=== PATIENT | female | born 1955 | race Caucasian/White ===

== ENCOUNTER 2018-08-25 18:22 | Emergency (ER) | payer BC ==
--- OUTSIDE RECORDS SUMMARY | 2018-08-25 18:31 | XMS REPORT | Continuity of Care Document ---
:1955 External Reference #:[id number] Author Name Yoni Dumont M.D. Address [address] [place] [address] Care Team Providers Name Role Phone Irasema Alba MD Care Team Information Design Project Manager Unavailable Irasema Alba MD Primary Care Physician Unavailable Payers Type Date Identification Numbers Payment Provider Subscriber Policy Number: [id number] [employer] Emiliana Benavidez PayID: [id number] [address] [place] [address] Advance Directives Description No Information Available Problems Date Description Provider Status Onset: 03/14/2016 Presence of intraocular lens Lennox Box O.D. Active Onset: 03/01/2016 Convalescence after surgery Yoni Dumont M.D. Active Onset: 02/09/2016 Type 2 diabetes mellitus Yoni Dumont M.D. Active Onset: 02/09/2016 Nuclear senile cataract Yoni Dumont M.D. Active Family History Date Family Member(s) Problem(s) Comments General Cerebrovascular Accident General High BP General Substance Abuse General Thyroid Disease General Grandparent, Son, Aunt Father Cataract Father Cancer Mother Cataract Mother High BP Social History Type Date Description Comments Sex Unknown ETOH Use Denies alcohol use Tobacco Use Start: Unknown Patient has never smoked Smoking Status Reviewed: 07/29/18 Patient has never smoked Allergies, Adverse Reactions, Alerts Date Description Reaction Status Severity Comments 02/09/2016 Penicillin Active 02/09/2016 Keflex Active 02/09/2016 Morphine Active 02/09/2016 Prednisone Active Medications Medication Date Status Form Strength Qnty SIG Indications Ordering Provider Levothyroxine 00/ Active Tablets 88mcg Unknown Sodium 0000 Ramipril 00/ Active Capsules 5mg Unknown 0000 Lipitor / Active Tablets 10mg Unknown 0000 Wellbutrin XL / Active Tablets ER 300mg Unknown 0000 24HR Lexapro / Active Tablets 20mg Unknown 0000 Flonase Allergy / Active Suspension 50mcg/Act 1 Unknown Relief 0000 intranasal every day as needed Aspir-81 / Active Tablets DR 81mg once per Unknown 0000 day by mouth Metformin HCL / Active Tablets ER 500mg Take 4 Unknown ER 0000 24HR Tablets By Mouth Every Day Victoza / Active Solution 18mg/3ML Unknown 0000 Pen-Inject Novolog 00/ Active Solution 100Unit/M Use Via Unknown 0000 L Insulin Pump Maximum Daily Dose Of 100 Units Per Day Ketorolac 02/13/ Hx Solution 0.5% 10ml 1 drops Yoni Tromethamine 2015 - right eye Dumont, 04/04/ twice a day M.D. 2015 Pred Forte 02/13/ Hx Suspension 1% 10ml 1 drops Yoni 2016 - right eye Dumont, 04/04/ four times M.D. 2015 a day Janumet / Hx Tablets 50-1000mg Unknown 0000 - 2017 Toujeo Solostar / Hx Solution 300Unit/M Unknown 0000 - Pen-Inject L 2017 Immunizations Description No Information Available Vital Signs Date Vital Result Comment 04/01/2018 10:38am Intraocular Pressure Right Eye 18 mmHg Intraocular Pressure Left Eye 18 mmHg 10/25/2016 10:18am Intraocular Pressure Right Eye 19 mmHg Intraocular Pressure Left Eye 19 mmHg 03/14/2016 11:53am Intraocular Pressure Right Eye 21 mmHg Intraocular Pressure Left Eye 21 mmHg 03/08/2016 9:47am Intraocular Pressure Right Eye 22 mmHg Intraocular Pressure Left Eye 22 mmHg 03/01/2016 10:22am Intraocular Pressure Right Eye 22 mmHg 02/09/2016 10:49am Intraocular Pressure Right Eye 22 mmHg Intraocular Pressure Left Eye 21 mmHg Results Test Date Facility Test Result H/L Range Note Laboratory test 03/07/2016 [facility] Point of Care 234 mg/dL High 74-106 [address] [place] [address] [phone] Laboratory test 03/07/2016 [facility] Point of Care 260 mg/dL High 74-106 [address] [place] [address] [phone] Laboratory test 02/29/2016 [facility] Point of Care 130 mg/dL High 74-106 [address] [place] [address] [phone] Release And Technical Records Clerk: [id number] ESME PRIETO 2 Release And Technical Records Clerk: [id number] ANTONI HAMMOND 3 Release And Technical Records Clerk: [id number] ANTONI HAMMOND Procedures Date Code Description Status 07/29/2018 91671 Excision Lesion Eyelid Completed 04/01/2018 63538 Ophthalmoscopy Subsequent Completed 04/01/2018 88915 Eye Exam Est Intermediate Completed 10/25/2016 62948 Ophthalmoscopy Subsequent Completed 10/25/2016 13665 Eye Exam Est Comprehensive Completed 03/07/2016 21482 Extracapsular Cataract Extraction W/Intraocular Lens Completed 02/29/2016 28424 Extracapsular Cataract Extraction W/Intraocular Lens Completed 02/09/2016 35884 Ophthalmic Biometry By Partial Coherence Interferometry Completed W/Intra 02/09/2016 33798 Eye Exam New Comprehensive Completed Encounters Description No Information Available Plan of Treatment 07/29/2018 - Yoni Dumont M.D.D23.12 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
[2018-08-25 18:36] VITALS: BP 115/75
--- NOTE | 2018-08-25 19:04 | UC ---
Knee Pain HPI - HPI Summary HPI Summary: Patient is a 63-year-old female who presents here for evaluation of left knee pain. About 2 years ago she twisted her left knee and heard a pop. Her pain resolved after a few days and she never sought treatment. Her left knee gave her no problems until about a month ago. Third having some medial joint pain. Today she felt and heard a loud pop and since then she has had difficulty ambulating. She presents here using a crutch. She states it feels like her left knee will buckle. - History of Current Complaint Chief Complaint: UCLowerExtremity Stated Complaint: KNEE INJURY Time Seen by Provider: 08/25/18 18:51 Hx Obtained From: Patient Onset/Duration: Sudden Onset Severity Initially: Moderate Severity Currently: Mild Pain Intensity: 1 Character: Sharp, Aching Aggravating Factor(s): Movement, Weight Bearing Alleviating Factor(s): Rest Associated Signs And Symptoms: Positive: Negative Able to Bear Weight: Yes Legs: 1 - pain 2 - tender medial joint line as well as over MCL - Allergies/Home Medications Allergies/Adverse Reactions: Allergies Allergy/AdvReac Type Severity Reaction Status Date / Time morphine Allergy Severe Vomiting Verified 08/25/18 18:38 Penicillins Allergy Severe Hives Verified 08/25/18 18:38 prednisone Allergy Severe "MAKES ME Verified 08/25/18 18:38 BELINDA" sulfamethoxazole Allergy Severe Blisters Verified 08/25/18 18:38 [From Bactrim] trimethoprim [From Bactrim] Allergy Severe Blisters Verified 08/25/18 18:38 cephalexin [From Keflex] Allergy Headache Verified 08/25/18 18:38 Home Medications: Home Medications Insulin Aspart [Novolog] 08/25/18 [History Confirmed 08/25/18] Liraglutide (NF) [Victoza (NF)] 08/25/18 [History Confirmed 08/25/18] Metformin Combo* 08/25/18 [History] Naproxen Sodium [Aleve] 2 tab PO ONCE PRN 08/25/18 [History Confirmed 08/25/18] PMH/Surg Hx/FS Hx/Imm Hx Previously Healthy: Yes Endocrine History: Diabetes Cardiovascular History: Hypertension - Surgical History Surgical History: Yes Surgery Procedure, Year, and Place: WISDOM TEETH EXTRACTION,. SESAMOID BONE EXTRACTED,. 1999 LEFT WRIST SURGERY (BONE EXTRACTED FROM HIP FOR THIS). RIGHT FOOT/ANKLE SURGERY (PLATE PLACED). 09/22/16 ORIF LEFT WRIST WITH HIP GRAFT [facility] - Family History Known Family History: Positive: Hypertension, Diabetes - Social History Alcohol Use: None Substance Use Type: None Smoking Status (MU): Never Smoked Tobacco Have You Smoked in the Last Year: No Review of Systems Constitutional: Negative Skin: Negative Eyes: Negative ENT: Negative Respiratory: Negative Cardiovascular: Negative Gastrointestinal: Negative Genitourinary: Negative Motor: Negative Neurovascular: Negative Musculoskeletal: Arthralgia Neurological: Negative Psychological: Negative All Other Systems Reviewed And Are Negative: Yes Physical Exam Triage Information Reviewed: Yes Appearance: Well-Appearing, No Pain Distress, Well-Nourished Vital Signs: Initial Vital Signs Temp 97 F 08/25/18 18:31 Pulse 87 08/25/18 18:31 Resp 16 08/25/18 18:31 BP 115/75 08/25/18 18:31 Pulse Ox 100 08/25/18 18:31 Eyes: Positive: Conjunctiva Clear ENT: Positive: Hearing grossly normal. Negative: Nasal congestion, Nasal drainage, Trismus, Muffled voice, Hoarse voice Neck: Positive: Supple, Nontender Respiratory: Positive: Lungs clear, Normal breath sounds, No respiratory distress Cardiovascular: Positive: RRR, No Murmur Musculoskeletal: Positive: Other: - no effussion noted Neurological: Positive: Alert Psychological Exam: Normal Skin Exam: Normal Diagnostics - Radiology No standard instances Xray Interpretation: No Acute Changes Radiology Interpretation Completed By: ED Physician Knee Pain Course/Dx - Differential Dx/Diagnosis Provider Diagnoses: left knee pain. ?MCL strain vs torn medial meniscus Discharge - Sign-Out/Discharge Documenting (check all that apply): Patient Departure All imaging exams completed and their final reports reviewed: No - Discharge Plan Condition: Stable Disposition: HOME Patient Education Materials: Knee Immobilizer (ED), Knee Pain (ED) Referrals: Irasema Goldstein MD [Primary Care Provider] - 5 Days Additional Instructions: rest elevate ice aleve or advil if needed knee immobilizer be sure to follow up if you are failing to improve you may need additional imaging - Billing Disposition and Condition Condition: STABLE Disposition: Home
--- NOTE | 2018-08-26 07:58 | RAD ---
Indication: Medial aspect LEFT knee pain. Popped going down stairs today. Injury 2 years ago. Comparison: No relevant prior exams available on the [facility] for comparison. Technique: LEFT knee: Supine AP, tunnel, lateral, sunrise views. Report: Negative for fracture. Trace suprapatellar joint recess fluid. Mild osteophytosis including a button osteophyte at the weightbearing portion of the lateral femoral condyle. Moderate joint space loss at the lateral facet of the patellofemoral joint. Unremarkable soft tissue contours. IMPRESSION: #. Osteoarthritis most prominent at the patellofemoral joint. Trace joint effusion. R0
--- NOTE | 2018-08-26 08:45 | UC ---
- Progress Note Progress Note: Radiologist reading of the left knee from August 25, 2018 has been read as no fracture, positive osteoarthritis and trace joint effusion. The provider who saw the patient on August 25, 2018 read the x-ray as NAD. There is no change in treatment. Discharge - Sign-Out/Discharge Documenting (check all that apply): Patient Departure All imaging exams completed and their final reports reviewed: Yes - Discharge Plan Condition: Stable Disposition: HOME Patient Education Materials: Knee Pain (ED), Knee Immobilizer (ED) Referrals: Irasema Goldstein MD [Primary Care Provider] - 5 Days Additional Instructions: rest elevate ice aleve or advil if needed knee immobilizer be sure to follow up if you are failing to improve you may need additional imaging - Billing Disposition and Condition Condition: STABLE Disposition: Home
== END 2018-08-25 19:38 | disposition home or self-care (01) ==
LOC: UCEAST 18:22
DX: M25.562 Pain in left knee (principal); E11.9 Type 2 diabetes mellitus without complications; Z88.5 Allergy status to narcotic agent; Z88.0 Allergy status to penicillin; Z88.2 Allergy status to sulfonamides; Z88.1 Allergy status to other antibiotic agents
CPT/HCPCS: 99213; G0463